=== PATIENT | male | born 1975 | race Caucasian/White ===

== ENCOUNTER 2017-01-27 16:20 | Emergency (ER) | payer OTHER ==
[~2017-01-27] VITALS: Ht 172.7 cm; Wt 59.0 kg
[2017-01-27] MEDS ORDERED: LIDOCAINE 2% 20 ML (XYLOCAINE) VIAL INJ ONE (16:30)
[2017-01-27] MEDS ORDERED: CEPHALEXIN 250 MG (KEFLEX) CAP PO ONE (16:30)
--- NOTE | 2017-01-27 16:32 | ED Upper Extremity ---
General Stated Complaint: RT HAND MIDDLE FINGER INJ Source: patient Exam Limitations: no limitations History of Present Illness Time seen by provider: 16:31 Initial Comments To ER with reports of right middle and pointer finger lacerations after he was at work and a grain auger fell on his hand. Was more of a crush injury as the auger was not running. Tetanus is up-to-date. Onset: just prior to arrival Severity: moderate Pain/Injury Location: right 2nd finger, right 3rd finger Method of Injury: direct blow Allergies and Home Medications Allergies Coded Allergies: No Known Drug Allergies (Unverified , 01/27/17) Home Medications Cephalexin 500 Mg Capsule, 500 MG PO TID, #21 Prescribed by: LAITH FOUNTAIN on 01/27/17 1717 Hydrocodone/Acetaminophen 1 Each Tablet, 1 EACH PO Q6H PRN for PAIN-MODERATE, # 14 Prescribed by: LAITH FOUNTAIN on 01/27/177 Ondansetron 8 Mg Tab.rapdis, 8 MG PO Q6H PRN for NAUSEA/VOMITING-1ST LINE, #10 Prescribed by: LAITH FOUNTAIN on 01/27/177 Constitutional: see HPI EENTM: see HPI Respiratory: no symptoms reported Cardiovascular: no symptoms reported Genitourinary: no symptoms reported Musculoskeletal: see HPI Skin: no symptoms reported Psychiatric/Neurological: No Symptoms Reported Physical Exam Vital Signs Vital Sign - Last 12Hours 01/27/17 16:25 Temp 98.0 Pulse 70 Resp 16 B/P (MAP) 119/73 Pulse Ox 99 Capillary Refill : General Appearance: WD/WN, no apparent distress HEENT: PERRL/EOMI, normal ENT inspection Neck: non-tender, full range of motion Respiratory: no respiratory distress, no accessory muscle use Shoulder: normal inspection, non-tender Elbow/Forearm: normal inspection, non-tender, Right Wrist: Yes normal inspection, Yes non-tender Hand: normal inspection, Right, limited ROM (laceration over the DIP joint right middle finger. He is unable to extend the finger at that joint. After he was anesthetized with a digital block using 4 mL of 2 percent lidocaine without epinephrine, wound was scrubbed with chlorhexidine/saline solution and irrigated with 100 mL of the same. There was evidence of a fracture, laceration of the extensor tendon over the dorsal aspect of the DIP joint. This was closed primarily with use of 5-0 Prolene sutures totaling number 6. Distal most aspect of the finger maintains capillary refill at less than 3 seconds) Neurologic/Tendon: normal sensation, normal motor functions, normal tendon functions Neurologic/Psychiatric: alert, normal mood/affect, oriented x 3 Skin: normal color, warm/dry Progress/Results/Core Measures Results/Orders My Orders Orders - LAITH FOUNTAIN APRN Lidocaine 2% Injection 20 Ml (Xylocaine (01/27/17 16:30) Cephalexin Capsule (Keflex Capsule) (01/27/17 16:30) Hand, Right, 3 Views (01/27/17 16:25) Medications Given in ED Current Medications Medications Dose Ordered Sig/Sujata Route Start Time Stop Time Status Last Admin Dose Admin Cephalexin HCl 500 mg ONCE ONCE PO 01/27/17 16:30 01/27/17 16:31 DC 01/27/17 16:30 500 MG Lidocaine HCl 20 ml ONCE ONCE INJ 01/27/17 16:30 01/27/17 16:31 DC 01/27/17 16:30 20 ML Vital Signs/I&O Vital Sign - Last 12Hours 01/27/17 16:25 Temp 98.0 Pulse 70 Resp 16 B/P (MAP) 119/73 Pulse Ox 99 Diagnostic Imaging Diagonstic Imaging: Xray Comments NAME: NANDA GRUBBS [facility] REC#: [id number] PT STATUS: REG ER : 1975 PHYSICIAN: LAITH FOUNTAIN APRN ADMIT DATE: 01/27/17/ER Draft Date of Exam:01/27/17 HAND, RIGHT, 3 VIEWS EXAMINATION: HAND, RIGHT, 3 VIEWS. INDICATION: Equipment fell on hand. COMPARISON: None. FINDINGS: Moderately displaced intra-articular fracture involving the base of the third distal phalanx. No other fractures. No radiopaque foreign bodies. IMPRESSION: Moderately displaced intra-articular fracture involving the base of the third right distal phalanx. Dictated on workstation # [id number] Dict: 01/27/17 1731 Trans: 01/27/17 1735 [facility] [id number] Interpreted by: MONICA RAY MD Electronically signed by: Departure Impression Impression: Primary Impression: Finger laceration involving tendon Disposition: 01 HOME, SELF-CARE Condition: Stable Departure-Patient Inst. Decision time for Depature: 17:15 Referrals: ED MARTINI MD,[facility],ANGEL MIKE,LOCAL PHYSICIAN (PCP) Primary Care Physician AUDIE DONOVAN MD, ROBERT F DO ZAFUTA,MONO Floyd MD Patient Instructions: Finger Fracture (DC), Laceration Repair With Stitches (DC ), Tendon Laceration (DC) Add. Discharge Instructions: 1. Return to the emergency room to have the stitches removed in 12 days 2. You may wash this allowing water to run over it twice a day with soap and water but do not soak it in water such as a hot tub, bathtub, dish sink until the stitches been removed 3. Return to ER for any redness or swelling or drainage that may suggest infection 4. Take antibiotics and the pain medication as directed 5. Follow-up with orthopedics to evaluate the extensor tendon injury of this finger. I've list of the local orthopedic surgeons for you. Try to be seen within the next 2 weeks. Scripts Cephalexin (Keflex) 500 Mg Capsule 500 MG PO TID, #21 CAP Prov: LAITH FOUNTAIN APRN 01/27/17 Hydrocodone/Acetaminophen ([place] 5-325 Tablet) 1 Each Tablet 1 EACH PO Q6H Y for PAIN-MODERATE, #14 TAB Prov: LAITH FOUNTAIN APRN 01/27/17 Ondansetron (Zofran Odt) 8 Mg Tab.rapdis 8 MG PO Q6H Y for NAUSEA/VOMITING-1ST LINE, #10 TAB Prov: LAITH FOUNTAIN APRN 01/27/17 LAITH FOUNTAIN APRN Jan 27, 2017 16:32
[2017-01-27] MEDS ORDERED: CEPH-507 PO (17:17)
[2017-01-27] MEDS ORDERED: HYDR-757 PO (17:17)
[2017-01-27] MEDS ORDERED: ONDA8TAB9 PO (17:17)
--- NOTE | 2017-01-27 17:36 | Diagnostic Imaging Report ---
EXAMINATION: HAND, RIGHT, 3 VIEWS. INDICATION: Equipment fell on hand. COMPARISON: None. FINDINGS: Moderately displaced intra-articular fracture involving the base of the third distal phalanx. No other fractures. No radiopaque foreign bodies. IMPRESSION: Moderately displaced intra-articular fracture involving the base of the third right distal phalanx. Dictated by: Dictated on workstation # [id number]
[2017-01-27 17:48] VITALS: BP 119/73
== END 2017-01-27 17:48 | disposition home or self-care (01) ==
LOC: EDUNIT# 16:20 → ER 16:23
DX: S61.210A Laceration without foreign body of right index finger without damage to nail, initial encounter (principal); W23.0XXA Caught, crushed, jammed, or pinched between moving objects, initial encounter
CPT/HCPCS: 12041; 29130; 64450; 73130

== ENCOUNTER 2018-10-26 11:38 | Emergency (ER) | payer SELFPAY ==
[~2018-10-26] VITALS: Ht 167.6 cm; Wt 61.2 kg
[~2018-10-26 11:38] MED LIST: CEPH-507 PO; HYDR-4226 PO; ONDA8TAB9 PO
[2018-10-26] MEDS ORDERED: CEPH500T PO (11:53)
[2018-10-26] MEDS ORDERED: SULF1TAB35 PO (11:53)
[2018-10-26] MEDS ORDERED: HYDR-4226 PO (11:53)
[2018-10-26] MEDS ORDERED: PRD20T PO (11:53)
--- NOTE | 2018-10-26 11:53 | ED Integumentary General ---
General Stated Complaint: POSS BUG BITE Source: patient Exam Limitations: no limitations History of Present Illness Date Seen by Provider: October 26, 2018 Time Seen by Provider: 11:47 Initial Comments To ER with reports of a possible bug bite. He was sleeping at a friend's house yesterday when he awakened to a sudden sharp pain in the proximal volar right forearm. Today he has swelling to that area, pain, slight redness. He is otherwise healthy, did not actually see anything bite him. Timing/Duration: just prior to arrival Severity: moderate Location: extremities Possible Cause: insect bite (suspected) Associated Symptoms: rash Allergies and Home Medications Allergies Coded Allergies: No Known Drug Allergies (Unverified , 01/27/17) Home Medications Cephalexin 500 Mg Capsule, 500 MG PO TID Prescribed by: LAITH FOUNTANI on 01/27/171716 Hydrocodone/Acetaminophen 1 Each Tablet, 1 EACH PO Q6H PRN for PAIN-MODERATE Prescribed by: LAITH FOUNTAIN on 01/27/171716 Ondansetron 8 Mg Tab.rapdis, 8 MG PO Q6H PRN for NAUSEA/VOMITING-1ST LINE Prescribed by: LAITH FOUNTAIN on 01/27/171716 Patient Home Medication List Home Medication List Reviewed: Yes Review of Systems Review of Systems Constitutional: see HPI; No chills, No fever EENTM: see HPI Respiratory: no symptoms reported Cardiovascular: no symptoms reported Genitourinary: no symptoms reported Musculoskeletal: see HPI Skin: see HPI Psychiatric/Neurological: No Symptoms Reported Endocrine: No Symptoms Reported Hematologic/Lymphatic: No Symptoms Reported Past Wriieeo-Qhawak-Nhqumy Hx Patient Social History Drug of Choice: METH, MARIJUANA 2nd Hand Smoke Exposure: Yes Recent Foreign Travel: No Contact w/Someone Who Travel: No Past Medical History Surgeries: No Respiratory: No Cardiac: No Neurological: No Genitourinary: No Gastrointestinal: No Musculoskeletal: No Endocrine: No HEENT: No Cancer: No Psychosocial: No Integumentary: No Physical Exam Vital Signs Capillary Refill : General Appearance: WD/WN, no apparent distress HEENT: PERRL/EOMI, normal ENT inspection Neck: non-tender, full range of motion Respiratory: no respiratory distress, no accessory muscle use Neurologic/Psychiatric: alert, normal mood/affect, oriented x 3 Skin: normal color, warm/dry Skin Problem Location: upper extremities Skin Problem Character: other (there is edema and slight erythema without fluctuance to the proximal right volar aspect of the forearm. No lymphangitis, he can flex and extend the wrist and the elbow. There is a central 2 mm eschar without drainage.) Departure Communication (Admissions) Differential would include localized allergic reaction versus cellulitis Impression Primary Impression: Localized swelling of forearm Disposition: HOME, SELF-CARE Condition: Stable Departure-Patient Inst. Decision time for Depature: 11:50 Referrals: NO,LOCAL PHYSICIAN (PCP/Family) Primary Care Physician Patient Instructions: Cellulitis (Skin Infection), Adult (DC), Insect Bites and Stings Add. Discharge Instructions: 1. Cold compresses to the area may help if this begins to itch, 2. Both antibiotics and steroids as directed 3. Follow-up with primary care later this week for recheck. Return to ER for any worsening. You may notice that it takes about 24-48 hours to see improvement Scripts Hydrocodone/Acetaminophen ([place] 5-325 Tablet) 1 Each Tablet 1 TAB PO Q4-6HR for Pain MDD 10 TABS for 7 Days, #10 TAB Do not fill unless Keflex, Bactrim, prednisone are also filled Prov: LAITH FOUNTAIN APRN 10/26/18 Prednisone (Prednisone) 20 Mg Tab 40 MG PO DAILY, #6 TAB 0 Refills Prov: LAITH FOUNTAIN APRN 10/26/18 Sulfamethoxazole/Trimethoprim (Bactrim Ds Tablet) 1 Each Tablet 1 EACH PO BID, #14 TAB Prov: LAITH FOUNTAIN APRN 10/26/18 Cephalexin (Cephalexin) 500 Mg Tablet 500 MG PO QID, #28 TAB 0 Refills Prov: LAITH FOUNTAIN APRN 10/26/18 LAITH FOUNTAIN APRN October 26, 2018 11:53
[2018-10-26] MEDS ORDERED: DEXAMETHASONE 10 MG/ML (DECADRON) 1 ML VIAL IM ONE (12:00)
[2018-10-26] MEDS ORDERED: cefTRIAXone 1,000 MG/2.86 ml vial (IM ONLY) IM SCH (12:00)
[2018-10-26] MEDS ORDERED: LIDOCAINE 1% INJ 20 ML 20 ML VIAL INJ ONE (12:00)
[2018-10-26 12:15] VITALS: BP 128/76
[2018-10-29] MEDS ORDERED: HYDR-3820 PO (12:53)
== END 2018-10-26 12:16 | disposition home or self-care (01) ==
LOC: EDUNIT# 11:38 → ER 11:39
DX: M79.89 Other specified soft tissue disorders (principal); F15.10 Other stimulant abuse, uncomplicated; F12.10 Cannabis abuse, uncomplicated; Z77.22 Contact with and (suspected) exposure to environmental tobacco smoke (acute) (chronic)
CPT/HCPCS: 99284

== ENCOUNTER 2018-10-28 05:15 | Inpatient (IN) | payer SELFPAY ==
[2018-10-28] VITALS (13 sets, daily range): BP systolic 108–131; BP diastolic 51–85
[~2018-10-28] VITALS: Ht 167.6 cm; Wt 69.5 kg
[~2018-10-28 05:15] MED LIST changes: +CEPH500T PO; +PRD20T PO; +SULF1TAB35 PO
--- NOTE | 2018-10-28 05:21 | NUR ---
This RN to waiting room, called pt name x3 times, no one in waiting room.
[2018-10-28] MEDS ORDERED: cefTRIAXone FOR IV USE 1,000 MG in WATER (STERILE) FOR INJECTION 10 ML IV ONE (05:45)
[2018-10-28] MEDS ORDERED: VANCOMYCIN INJECTION 1,000 MG in NS (IVPB) 250 ML IV SCH (05:45)
[2018-10-28 05:55] LABS: BASOPHILS % (AUTO) 0 % (0-10); EOSINOPHILS % (AUTO) 0 % (0-10); HEMATOCRIT 42 % (40-54); HEMOGLOBIN 14.2 G/DL (13.3-17.7); LYMPHOCYTES # (AUTO) 1.6 X 10^3 (1.0-4.0); LYMPHOCYTES % (AUTO) 14 % (12-44); MEAN CORPUSCULAR HEMOGLOBIN 31 PG (25-34); MEAN CORPUSCULAR HGB CONC 34 G/DL (32-36); MEAN CORPUSCULAR VOLUME 92 FL (80-99); MEAN PLATELET VOLUME 7.9 FL (7.4-10.4); MONOCYTES # (AUTO) 0.8 X 10^3 (0.0-1.0); MONOCYTES % (AUTO) 7 % (0-12); NEUTROPHILS # (AUTO) 8.8 X 10^3 (1.8-7.8); NEUTROPHILS % (AUTO) 79 % (42-75); PLATELET COUNT 338 10^3/uL (130-400); RED CELL DISTRIBUTION WIDTH 13.6 % (10.0-14.5); WHITE BLOOD COUNT 11.2 10^3/uL (4.3-11.0)
--- NOTE | 2018-10-28 05:57 | ED General ---
General Chief Complaint: Skin/Wound Problems Stated Complaint: RED SWOLLEN FOREARM Nursing Triage Note: Pt amb to room #5 w/o difficulty. a&ox4. c/o inner rt forearm swelling, redness , and pain. Reports to have been seen in this ed on 10/26/18 for same wound, but has been unable to obtain prescribed antibiotic and pain medications d/t financial issues. Reports to have "dug infected hair follicle out with a knife" before area of concern developed. Surrounding tissue noted to be inflammed, swollen, and warm to touch. Denies recent fever. Nursing Sepsis Screen: No Definite Risk Source of Information: Patient, Old Records Exam Limitations: No Limitations History of Present Illness Date Seen by Provider: October 28, 2018 Time Seen by Provider: 05:30 Initial Comments This 42-year-old man presents to the emergency room with pain, swelling, and erythema of the ventral aspect of the right forearm. He was seen 2 days ago for the same issue with lesser symptoms. He was prescribed Bactrim and Keflex which she did not fill due to finances. Patient does not know the cause of the initial symptoms. There is a small scabbed lesion near the area. He speculates he may have been bitten by a spider. He also wondered if there was a "ingrown hair. He dug at it with a pocket knife. There is been no drainage. He is afebrile. The area of blanching erythema is indurated and tightly swollen. He has pain with flexion and extension of the wrist. He retains sensation in the fingers and has a strong radial pulse. Patient is admittedly a methamphetamine IV drug user. His last use was a couple of days ago. His last marijuana use was a day ago. Allergies and Home Medications Allergies Coded Allergies: No Known Drug Allergies (Unverified , 01/27/17) Home Medications Cephalexin 500 Mg Capsule, 500 MG PO TID Prescribed by: LAITH FOUNTAIN on 01/27/177 Cephalexin 500 Mg Tablet, 500 MG PO QID Prescribed by: LAITH FOUNTAIN on 10/26/18 1153 Hydrocodone/Acetaminophen 1 Each Tablet, 1 EACH PO Q6H PRN for PAIN-MODERATE Prescribed by: LAITH FOUNTAIN on 01/27/17 1717 Hydrocodone/Acetaminophen 1 Each Tablet, 1 TAB PO Q4-6HR Do not fill unless Keflex, Bactrim, prednisone are also filled Prescribed by: LAITH FOUNTAIN on 10/26/18 1153 Ondansetron 8 Mg Tab.rapdis, 8 MG PO Q6H PRN for NAUSEA/VOMITING-1ST LINE Prescribed by: LAITH FOUNTAIN on 01/27/17 1717 Prednisone 20 Mg Tab, 40 MG PO DAILY Prescribed by: LAITH FOUNTAIN on 10/26/18 1153 Sulfamethoxazole/Trimethoprim 1 Each Tablet, 1 EACH PO BID Prescribed by: LAITH FOUNTAIN on 10/26/18 1153 Patient Home Medication List Home Medication List Reviewed: Yes Review of Systems Review of Systems Constitutional: no symptoms reported EENTM: no symptoms reported Respiratory: no symptoms reported Cardiovascular: no symptoms reported Gastrointestinal: no symptoms reported Genitourinary: no symptoms reported Musculoskeletal: see HPI Skin: see HPI Psychiatric/Neurological: See HPI Hematologic/Lymphatic: No Symptoms Reported Immunological/Allergic: no symptoms reported Past Kbukhvz-Gypgta-Kxhivd Hx Past Med/Social Hx: Reviewed and Corrections made Patient Social History Alcohol Use: Occasionally Uses Recreational Drug Use: Yes Drug of Choice: MARIJUINA, IV methamphetamines 2nd Hand Smoke Exposure: Yes Recent Foreign Travel: No Contact w/Someone Who Travel: No Recent Infectious Disease Expo: No Past Medical History Surgeries: No Respiratory: No Cardiac: No Neurological: No Genitourinary: No Gastrointestinal: No Musculoskeletal: No Endocrine: No HEENT: No Cancer: No Psychosocial: No Integumentary: No Physical Exam Vital Signs Vital Signs - First Documented 10/28/18 05:21 Temp 98.0 Pulse 85 Resp 17 B/P (MAP) 119/68 (85) Pulse Ox 99 O2 Delivery Room Air Capillary Refill : Less Than 3 Seconds Height, Weight, BMI Height: 5'6.00" Weight: 135lbs. 0oz. 61.501786xf; BMI Method:Stated General Appearance: No Apparent Distress, WD/WN HEENT: PERRL/EOMI, Normal ENT Inspection Neck: Normal Inspection Respiratory: Lungs Clear, Normal Breath Sounds, No Accessory Muscle Use, No Respiratory Distress Cardiovascular: Regular Rate, Rhythm, No Edema, No Murmur Extremity: Other (blanching erythema, induration, tenderness, and swelling of the ventral aspect of the right forearm. Small dark lesion near this area. Strong radial pulse. Sensation and range of motion intact in the hand and wrist. There is pain in the forearm with range of motion in the wrist.) Neurologic/Psychiatric: Alert, Oriented x3, No Motor/Sensory Deficits, Normal Mood/Affect, cardiothoracic physiotherapist II-XII Norm as Tested Skin: Warm/Dry, Erythema Focused Exam Lactate Level 10/28/18 05:47: Lactic Acid Level 0.76 Lactic Acid Level Laboratory Tests Test 10/28/18 05:47 Lactic Acid Level 0.76 MMOL/L (0.50-2.00) Progress/Results/Core Measures Suspected Sepsis Recent Fever Within 48 Hours: No Infection Criteria Present: Documented Infection New/Unexplained Altered Menta: No Sepsis Screen: No Definite Risk SIRS Temperature:98.0 Pulse: 85 Respiratory Rate: 17 Laboratory Tests 10/28/18 05:47: White Blood Count 11.2H Blood Pressure 119 /68 Mean: 85 10/28/18 05:47: Lactic Acid Level 0.76 Laboratory Tests 10/28/18 05:47: Platelet Count 338 Results/Orders Lab Results Laboratory Tests Test 10/28/18 05:47 Range/Units White Blood Count 11.2 H 4.3-11.0 10^3/uL Red Blood Count 4.56 4.35-5.85 10^6/uL Hemoglobin 14.2 13.3-17.7 G/DL Hematocrit 42 40-54 % Mean Corpuscular Volume 92 80-99 FL Mean Corpuscular Hemoglobin 31 25-34 PG Mean Corpuscular Hemoglobin Concent 34 32-36 G/DL Red Cell Distribution Width 13.6 10.0-14.5 % Platelet Count 338 130-400 10^3/uL Mean Platelet Volume 7.9 7.4-10.4 FL Neutrophils (%) (Auto) 79 H 42-75 % Lymphocytes (%) (Auto) 14 12-44 % Monocytes (%) (Auto) 7 0-12 % Eosinophils (%) (Auto) 0 0-10 % Basophils (%) (Auto) 0 0-10 % Neutrophils # (Auto) 8.8 H 1.8-7.8 X 10^3 Lymphocytes # (Auto) 1.6 1.0-4.0 X 10^3 Monocytes # (Auto) 0.8 0.0-1.0 X 10^3 Eosinophils # (Auto) 0.0 0.0-0.3 10^3/uL Basophils # (Auto) 0.0 0.0-0.1 10^3/uL Lactic Acid Level 0.76 0.50-2.00 MMOL/L My Orders Orders - ANABEL MONTES MD Cbc With Automated Diff (10/28/18 05:38) Comprehensive Metabolic Panel (10/28/18 05:38) Hs C Reactive Protein (10/28/18 05:38) Blood Culture (10/28/18 05:38) Ed Iv/Invasive Line Start (10/28/18 05:38) Lactic Acid Analyzer (10/28/18 05:38) Ceftriaxone For Iv Use (Rocephin For I (10/28/18 05:45) Vancomycin Injection (Vancomycin Injecti (10/28/18 05:45) Medications Given in ED Current Medications Medications Dose Ordered Sig/Sujata Route Start Time Stop Time Status Last Admin Dose Admin Ceftriaxone Sodium 1000 mg/ Sterile Water 10 ml @ 200 mls/hr ONCE ONCE IV 10/28/18 05:45 10/28/18 05:47 DC 10/28/18 05:59 200 MLS/HR Vital Signs/I&O 10/28/18 05:21 Temp 98.0 Pulse 85 Resp 17 B/P (MAP) 119/68 (85) Pulse Ox 99 O2 Delivery Room Air Capillary Refill : Less Than 3 Seconds Blood Pressure Mean: 85 Progress Note : Time: 05:54 Progress Note Patient was seen and examined. Labs have been ordered. Labs include blood culture and lactic acid. Bedside ultrasound revealed layering of fluid in the subcutaneous tissues over the area of maximum swelling. There is concern for abscess Departure Communication (Admissions) Time/Spoke to Admitting Phy: 06:05 Dr. Chi Time/Spoke to Consulting Phy: 06:09 Dr. Correa Impression Primary Impression: Cellulitis and abscess of upper arm and forearm Additional Impression: Polysubstance abuse Disposition: 01 HOME, SELF-CARE Condition: Improved Admissions Decision to Admit Reason: Admit from ER (General) Decision to Admit/Date: October 28, 2018 Time/Decision to Admit Time: 05:40 Departure-Patient Inst. Referrals: NO,LOCAL PHYSICIAN (PCP/Family) Primary Care Physician ANABEL MONTES MD October 28, 2018 05:57
[2018-10-28 06:14] LABS: ALANINE AMINOTRANSFERASE 15 U/L (0-55); ALKALINE PHOSPHATASE 75 U/L (40-136); BILIRUBIN,TOTAL 0.5 MG/DL (0.1-1.0); BUN/CREATININE RATIO 9; CALCIUM 9.7 MG/DL (8.5-10.1); CARBON DIOXIDE 24 MMOL/L (21-32); CHLORIDE 100 MMOL/L (98-107); CREATININE SERUM 1.14 MG/DL (0.60-1.30); GFR ESTIMATED > 60; GLUCOSE 94 MG/DL (70-105); POTASSIUM 3.8 MMOL/L (3.6-5.0); SODIUM 135 MMOL/L (135-145); TOTAL PROTEIN 7.5 GM/DL (6.4-8.2)
[2018-10-28] MEDS ORDERED: CATHETER FLUSH 10 ML SYR IV PRN (07:30)
[2018-10-28] MEDS ORDERED: ONDANSETRON 4 MG/2 ML (SDV) Z0FRAN IV PRN (07:30)
[2018-10-28] MEDS ORDERED: NS IV 1000 ML 1,000 ML IV SCH (07:30)
--- NOTE | 2018-10-28 07:36 | NUR ---
PHARMACY TO DOSE VANCOMYCIN: BASED ON IBW 63.8, SCr 1.14 EST CrCl 78 LOADING DOSE: 1,500 MG MAIN DOSE: 1,000 MG IV Q 12 HR VANCOMYCIN TROUGH DUE 10/29/18 @ 19:00 IF TROUGH GREATER THAN 20 HOLD 10/29/18 20:00 DOSE
[2018-10-28] MEDS ORDERED: VANCOMYCIN 1500 MG/NS 500 ML IVPB IV NR ×2 (08:00)
--- NOTE | 2018-10-28 09:11 | History & Physical-Hospitalist ---
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 Apparently he went to the ER 2 days prior given appropriate antibiotics but could not afford the generic antibiotic that was given so he returned it was much worse. He reports that it started out as an ingrown hair which she dug out with his pocket knife. Overall patient is not forthcoming with any significant details. I appreciate Dr. Correa who will perform incision and drainage maintain antibiotics in the meantime. Source: patient Exam Limitations: no limitations Date Seen 10/28/18 Time Seen by a Provider: 09:00 Attending Physician Gianfranco Correa DO PCP No,Local Physician Referring Physician Date of Admission October 28, 2018 at 06:07 Home Medications & Allergies Home Medications Reviewed patient Home Medication Reconciliation performed by pharmacy medication reconciliations lab animal technician and/or nursing. Patients Allergies have been reviewed. Allergies Allergies Coded Allergies No Known Drug Allergies (Unverified01/27/17) Past Teqzfwt-Qqoxhl-Ekzigd Hx Past Med/Social Hx: Reviewed Nursing Past Med/Soc Hx, Reviewed and Corrections made Patient Social History Marrital Status: single Employed/Student: unemployed Alcohol Use: Occasionally Uses Recreational Drug Use: Yes Drug of Choice: MARIJUINA, IV methamphetamines Smoking Status: Unknown if Ever Smoked 2nd Hand Smoke Exposure: Yes Recent Foreign Travel: No Contact w/other who traveled: No Recent Infectious Disease Expo: No Review of Systems Constitutional: see HPI, fever, malaise, weakness Musculoskeletal: muscle pain Skin: see HPI Physical Exam Physical Exam Vital Signs Vital Signs - First Documented 10/28/18 05:21 Temp 98.0 Pulse 85 Resp 17 B/P (MAP) 119/68 (85) Pulse Ox 99 O2 Delivery Room Air Capillary Refill : Less Than 3 Seconds Height, Weight, BMI Height: 5'6.00" Weight: 153lbs. 4.1oz. 69.393046iz; BMI Method:Stated General Appearance: No Apparent Distress Respiratory: Chest Non Tender, Lungs Clear, Normal Breath Sounds, No Accessory Muscle Use, No Respiratory Distress Cardiovascular: Regular Rate, Rhythm, No Edema, No Gallop, No JVD, No Murmur, Normal Peripheral Pulses Extremity: Normal Capillary Refill, Normal Inspection (except right lower arm with erythema and tenderness), Normal Range of Motion, Non Tender, No Calf Tenderness, No Pedal Edema Results Results/Procedures Labs Laboratory Tests 10/28/18 05:47 Patient resulted labs reviewed. Assessment/Plan Admission Diagnosis Assessment: Right arm cellulitis with abscess from taking a sore out with pocketknife Noncompliant with antibiotics given in ER 2 days prior Long history of methamphetamine use Daily use of marijuana Plan: IV antibiotics Incision and drainage Appreciate general surgery consultation Admission Status: Inpatient Order (span 2 midnights) Reason for Inpatient Admission: Failure of PO antibiotics Diagnosis/Problems Diagnosis/Problems (1) Cellulitis and abscess of upper arm and forearm Status: Acute (2) Polysubstance abuse Status: Acute LANDY PEARCE DO October 28, 2018 09:11
--- NOTE | 2018-10-28 09:42 | Consultation (Surgery) ---
History of Present Illness History of Present Illness Patient Consulted On(derrick/time) 10/28/18 09:36 Time Seen by Provider: 09:29 History of Present Illness Surgery asked to consult regarding right forearm abscess/cellulitis. HPI per ED: This 42-year-old man presents to the emergency room with pain, swelling, and erythema of the ventral aspect of the right forearm. He was seen 2 days ago for the same issue with lesser symptoms. He was prescribed Bactrim and Keflex which she did not fill due to finances. Patient does not know the cause of the initial symptoms. There is a small scabbed lesion near the area. He speculates he may have been bitten by a spider. He also wondered if there was a "ingrown hair. He dug at it with a pocket knife. There is been no drainage. He is afebrile. The area of blanching erythema is indurated and tightly swollen. He has pain with flexion and extension of the wrist. He retains sensation in the fingers and has a strong radial pulse. Patient is admittedly a methamphetamine IV drug user. His last use was a couple of days ago. His last marijuana use was a day ago. When I spoke to pt this am he states he feels a little better, "not as sick as last night". Still has pain rated 5 out of 10. Allergies and Home Medications Allergies Coded Allergies: No Known Drug Allergies (Unverified , 01/27/17) Home Medications Cephalexin 500 Mg Capsule, 500 MG PO TID Prescribed by: LAITH FOUNTAIN on 01/27/171716 Cephalexin 500 Mg Tablet, 500 MG PO QID Prescribed by: LAITH FOUNTAIN on 10/26/18 115 Hydrocodone/Acetaminophen 1 Each Tablet, 1 EACH PO Q6H PRN for PAIN-MODERATE Prescribed by: LAITH FOUNTAIN on 01/27/171716 Hydrocodone/Acetaminophen 1 Each Tablet, 1 TAB PO Q4-6HR Do not fill unless Keflex, Bactrim, prednisone are also filled Prescribed by: LAITH FOUNTAIN on 10/26/18 115 Ondansetron 8 Mg Tab.rapdis, 8 MG PO Q6H PRN for NAUSEA/VOMITING-1ST LINE Prescribed by: LAITH FOUNTAIN on 01/27/17 171 Prednisone 20 Mg Tab, 40 MG PO DAILY Prescribed by: LAITH FOUNTAIN on 10/26/18 1153 Sulfamethoxazole/Trimethoprim 1 Each Tablet, 1 EACH PO BID Prescribed by: LAITH FOUNTAIN on 10/26/18 1153 Patient Home Medication List Home Medication List Reviewed: Yes Past Hlpyrlo-Ypgabl-Dijkvc Hx Patient Social History Alcohol Use: Occasionally Uses Recreational Drug Use: Yes Drug of Choice: MARIJUINA, IV methamphetamines Smoking Status: Unknown if Ever Smoked 2nd Hand Smoke Exposure: Yes Recent Foreign Travel: No Contact w/Someone Who Travel: No Recent Infectious Disease Expo: No Surgeries History of Surgeries: No Respiratory History of Respiratory Disorde: No Cardiovascular History of Cardiac Disorders: No Neurological History of Neurological Disord: No Genitourinary History of Genitourinary Disor: No Gastrointestinal History of Gastrointestinal Di: No Musculoskeletal History of Musculoskeletal Dis: No Endocrine History of Endocrine Disorders: No HEENT History of HEENT Disorders: No Cancer History of Cancer: No Psychosocial History of Psychiatric Problem: No Integumentary History of Skin or Integumenta: No Family Medical History Significant Family History: Cancer (Father at 49 of [place]) Review of Systems-General Constitutional: chills, diaphoresis, weakness EENTM: No blurred vision, No eye pain, No epistaxis, No throat pain, No throat swelling Respiratory: No cough, No dyspnea on exertion, No hemoptysis Cardiovascular: No chest pain, No edema, No palpitations Gastrointestinal: No abdominal pain, No constipation, No nausea, No vomiting Genitourinary: No dysuria, No frequency, No hematuria Musculoskeletal: joint swelling, muscle pain, muscle stiffness, muscle cramps Skin: see HPI Psychiatric/Neurological: Denies Anxiety, Denies Depressed, Denies Seizure Other pt denies any abnormal bleeding or bruising Physical Exam-General Problems Physical Exam Vital Signs Vital Signs - First Documented 10/28/18 05:21 Temp 98.0 Pulse 85 Resp 17 B/P (MAP) 119/68 (85) Pulse Ox 99 O2 Delivery Room Air Capillary Refill : Less Than 3 Seconds General Appearance: WD/WN, mild distress Eyes: Bilateral Eye PERRL, Bilateral Eye EOMI HEENT: pharynx normal; No scleral icterus (R), No scleral icterus (L) Neck: non-tender, full range of motion, supple, normal inspection Respiratory: chest non-tender, lungs clear, normal breath sounds, no respiratory distress Cardiovascular: regular rate, rhythm, no edema, no murmur Gastrointestinal: normal bowel sounds, non tender, soft, no organomegaly, no pulsatile mass Back: no CVA tenderness, no vertebral tenderness Extremities: no pedal edema, no calf tenderness, normal capillary refill, swelling (erythema in right forearm, ??fluctuant wave and very warm to touch, tender) Neurologic/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: 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 as tested, no motor/sensory deficits, alert, normal mood/affect, oriented x 3 Skin: normal color, warm/dry Lymphatic: no adenopathy (neck, axilla or groin) Data Review Labs Laboratory Tests 10/28/18 05:47: White Blood Count 11.2H, Red Blood Count 4.56, Hemoglobin 14.2, Hematocrit 42, Mean Corpuscular Volume 92, Mean Corpuscular Hemoglobin 31, Mean Corpuscular Hemoglobin Concent 34, Red Cell Distribution Width 13.6, Platelet Count 338, Mean Platelet Volume 7.9, Neutrophils (%) (Auto) 79H, Lymphocytes (%) (Auto) 14 , Monocytes (%) (Auto) 7, Eosinophils (%) (Auto) 0, Basophils (%) (Auto) 0, Neutrophils # (Auto) 8.8H, Lymphocytes # (Auto) 1.6, Monocytes # (Auto) 0.8, Eosinophils # (Auto) 0.0, Basophils # (Auto) 0.0, Sodium Level 135, Potassium Level 3.8, Chloride Level 100, Carbon Dioxide Level 24, Anion Gap 11, Blood Urea Nitrogen 10, Creatinine 1.14, Estimat Glomerular Filtration Rate > 60, BUN/ Creatinine Ratio 9, Glucose Level 94, Lactic Acid Level 0.76, Calcium Level 9.7 , Corrected Calcium 9.7, Total Bilirubin 0.5, Aspartate Amino Transf (AST/SGOT) 15, Alanine Aminotransferase (ALT/SGPT) 15, Alkaline Phosphatase 75, C-Reactive Protein High Sensitivity 9.70H, Total Protein 7.5, Albumin 4.0 Assessment/Plan Assessment/Plan Assessment/Plan Right Forearm Abscess and Cellulitis Pt has abscess and fluid confirmed by US in his right forearm; it actually looks better than lines drawn on arm last night, but is now all collecting in the center. I explained to pt that unless the purulent fluid is removed the ABX won't work. Plan is I&D with possible debridement, possible packing. Will leave incision open and then start on oral ABX. If he is doing well enough he may even be able to go home today. All questions answered to his satisfaction. We did discuss risks and complications not limited to pain, bleeding, infection and scar. ESME GOMEZ DO October 28, 2018 09:42
--- NOTE | 2018-10-28 10:02 | NUR ---
PATIENT STATES HE IS NOT CURRENTLY TAKING ANY MEDICATIONS. HE WAS PRESCRIBED KEFLEX, NORCO, BACTRIM, AND PREDNISONE FROM THE EMERGENCY DEPARTMENT RECENTLY HOWEVER THOSE SCRIPTS ARE STILL READY AT [facility]. HE STATES HE WAS UNABLE TO AFFORD TO PICK THEM UP. I REMOVED THEM FROM THE MED REC AT THIS TIME.
[2018-10-28] MEDS ORDERED: BUP/EPI 0.5% 1:200,000 (SENSORCAINE) 30 ML VIAL ONE (10:24)
[2018-10-28] MEDS ORDERED: LIDOCAINE 1% INJ 20 ML 20 ML VIAL ONE (10:24)
--- NOTE | 2018-10-28 10:30 | NUR ---
STENCILING MACHINE TENDER HERE TO TAKE PATIENT FOR PROCEDURE. PATIENT STABLE ON ROOM AIR, IN GOWN AND CONSENT IN IS THE CHART. PATIENT TRANSPORTED VIA HOSPITAL BED.
[2018-10-28] MEDS ORDERED: fentaNYL INJECTION 100 MCG/2 ML AMP ONE ×2 (10:40→11:16)
[2018-10-28] MEDS ORDERED: MIDAZOLAM 2 MG/2 ML (VERSED) VIAL ONE (10:40)
[2018-10-28] MEDS: LACTATED RINGERS 1,000 ML IV SCH ×4 (10:44→23:31)
[2018-10-28] MEDS ORDERED: ONDANSETRON 4 MG/2 ML (SDV) Z0FRAN ONE (11:16)
[2018-10-28] MEDS ORDERED: SEVOFLURANE (ULTANE) 15 ML INHAL SOLN ONE (11:16)
[2018-10-28] MEDS ORDERED: proPOfol 200 MG/20 ML (DIPRIVAN) VIAL IV ONE (11:16)
--- NOTE | 2018-10-28 11:26 | Progress Note-Post Operative ---
Post-Operative Progess Note Surgeon (s)/Organic Gardening Teacher (s) Surgeon ESME GOMEZ DO Organic Gardening Teacher: none Pre-Operative Diagnosis Right Forearm Abscess/Cellulitis Post-Operative Diagnosis same Procedure & Operative Findings Date of Procedure 10/28/18 Procedure Performed/Findings I&D with packing Anesthesia Type GET Estimated Blood Loss Estimated blood loss (mL): scant Specimens/Packing Specimens Removed fluid clx ESME GOMEZ DO October 28, 2018 11:26
--- NOTE | 2018-10-28 11:29 | Diagnostic Imaging Report ---
EXAMINATION: Ultrasound of the soft tissues. INDICATION: Cellulitis of the right upper extremity. COMPARISON: There are no prior studies available for comparison. FINDINGS: Reportedly, there is cellulitis of the antecubital fossa and the mid forearm. The ultrasound examination of this area shows that there is generalized edema of the soft tissues and skin in this region. There also appears to be a small collection of fluid along the medial aspect of the forearm. This does not have the appearance of a drainable abscess, however. IMPRESSION: 1. There is generalized soft tissue edema of the antecubital fossa and forearm without evidence for a drainable abscess. 2. If the patient's condition worsens, then a repeat ultrasound exam should be considered. Dictated by: Dictated on workstation # [id number]
[2018-10-28] MEDS ORDERED: HYDROmorphone 2 MG/ML VIAL (DILAUDID) IV ONE (11:45)
[2018-10-28] MEDS ORDERED: morphine INJ 10 MG/ML 1ML (SYR OR VIAL) IVP ONE (11:45)
[2018-10-28] MEDS ORDERED: ONDANSETRON 4 MG/2 ML (SDV) Z0FRAN IVP PRN (11:45)
[2018-10-28] MEDS ORDERED: HYDROmorphone 2 MG/ML VIAL (DILAUDID) ONE (11:53)
[2018-10-28] MEDS ORDERED: morphine INJ 10 MG/ML 1ML (SYR OR VIAL) ONE (11:53)
--- NOTE | 2018-10-28 13:00 | NUR ---
PATIENT BACK IN ROOM FROM OR. PATIENT STABLE ON ROOM AIR. COMPLAINING OF PAIN IN THE RIGHT ARM 03/25.
[2018-10-28] MEDS: fentaNYL INJECTION 100 MCG/2 ML AMP IV PRN ×5 (13:06→23:22)
--- NOTE | 2018-10-28 15:09 | OPERATIVE REPORT ---
DATE OF SERVICE: 10/28/2018 PREOPERATIVE DIAGNOSIS: Right forearm abscess cellulitis. POSTOPERATIVE DIAGNOSIS: Right forearm abscess cellulitis pending cultures. PROCEDURE: Incision and drainage with some minimal debridement and then packing of the right arm. BLOOD LOSS: Scant. FLUIDS: Per anesthesia. POSTOPERATIVE CONDITION: Stable. INDICATION FOR PROCEDURE: The patient is a 42-year-old male who had an abscess cellulitis in the right forearm. started with either an ingrown hair or a spider bite, which he then dug out with a knife, got infected and has been getting progressively worse. FINDINGS: The patient had a large area of induration and some purulence right forearm, opened this up and actually had an orthopedic surgeon come and just take a quick peek and it looked fine. PROCEDURE NOTE: After informed consent was obtained, the patient was brought to the operating room, placed on the table in supine position, sterilely prepped and draped in normal fashion. Made an incision in the right forearm measuring approximately 7.8 cm, carried down through the skin into subcutaneous tissue. Immediately upon entry, then used some blunt dissection. Got out some purulent fluid. Tried to culture this. Sent to pathology and then carefully with blunt dissection, dissected above the muscle. The dissection went out medially on the forearm about 3 cm as well as another 2 cm laterally. The muscle was bulging out, so I asked orthopedic surgeon to come and look. I opened the fascia at his direction underneath. He did not believe this is a compartment syndrome or would become one, so at this point, I irrigated little bit with normal saline. Hemostasis obtained using Bovie electrocautery and then packed the incision with iodoform packing, a quarter-inch packing, packed it up into the tunneled areas and then in the middle of the incision and I then placed 4 x 4s and then a Kerlix dressing. The patient tolerated procedure, still in the operating room while I am dictating this. He is doing well. Sponge, instrument and needle counts were correct at the end of the case. Job ID: [id number] DocumentID: [id number] Dictated Date: 10/28/2018 11:22:08 Enrobing Machine Operator Date: 10/28/2018 15:08:43 Dictated By: ESME GOMEZ DO
[2018-10-28] MEDS: VANCOMYCIN 1 GM/NS 250 ML IVPB IV SCH ×2 (20:49)
[2018-10-29 00:05] VITALS: BP 126/70
--- NOTE | 2018-10-29 01:10 | NUR ---
SPOKE WITH DR. CASTREJON AND INFORMED HIM THAT PT IS COMPLAINING OF SEVERE PAIN IN HIS ARM WITH NUMBNESS AND TINGLING AND STATING THAT HE CANNOT FEEL HIS FINGERS. ON ASSESSMENT PT IS ABLE TO MOVE HIS FINGERS BUT COMPLAINS OF EXTREME PAIN WITH MOVEMENT. TELEPHONE ORDERS RECEIVED FOR 2MG MORPHINE Q2HRS PRN FOR SEVERE PAIN, VICODIN 5MG Q4HRS PRN MODERATE PAIN AND TO DISCONTINUE FENTANYL. WILL CARRY OUT ORDERS AND CONTINUE TO MONITOR PT.
[2018-10-29] MEDS ORDERED: morphine INJ 4 MG/ML 1 ML (VIAL/SYRINGE) ONE (01:25)
[2018-10-29] MEDS ORDERED: morphine INJ 4 MG/ML 1 ML (VIAL/SYRINGE) IVP PRN (01:30)
--- NOTE | 2018-10-29 01:45 | NUR ---
THIS RN AND A SECOND RN WENT IN AND TOOK PTS DRESSING OFF TO ASSESS WOUND. WOUND IS RED AND VERY HARD TO THE TOUCH. WITH SMALL AMT OF REDNESS COMING OUT PAST WHERE PREVIOUS DRAWING WAS DRAWN ON PTS ARM. CALLED DR. CASTREJON AND INFORMED HIM OF THESE FINDINGS. NO NEW ORDERS AT THIS TIME.
[2018-10-29 03:59] VITALS: BP 116/63
[2018-10-29] MEDS: HYDROcodone/APAP 5 MG/325 MG (LORTAB) TAB PO PRN ×2 (06:50→14:20)
--- NOTE | 2018-10-29 07:08 | Anesthesia-General Post-Op ---
General Patient Condition Mental Status/LOC: Same as Preop Cardiovascular: Satisfactory Nausea/Vomiting: Absent Respiratory: Satisfactory Pain: Controlled Complications: Absent Post Op Complications Complications None Follow Up Care/Instructions Patient Instructions None needed. Anesthesia/Patient Condition Patient Condition Patient is doing well, no complaints, stable vital signs, no apparent adverse anesthesia problems. No complications reported per nursing. D/C home per [facility] Criteria: Yes SHAVON METZ CRNA October 29, 2018 07:08
[2018-10-29 08:00] VITALS: BP 131/66
[2018-10-29] MEDS: VANCOMYCIN 1 GM/NS 250 ML IVPB IV SCH ×2 (08:18)
[2018-10-29] MEDS ORDERED: cefTRIAXone 1,000 MG/SWFI 10 ML IV PUSH IV SCH ×2 (09:00)
[2018-10-29] MEDS ORDERED: SULF1TAB35 PO (09:49)
--- NOTE | 2018-10-29 09:50 | Discharge Summary-Hospitalist ---
Diagnosis/Chief Complaint Date of Admission October 28, 2018 at 06:07 Date of Discharge Discharge Date: October 29, 2018 Admission Diagnosis Assessment: Right arm cellulitis with abscess from taking a sore out with pocketknife Noncompliant with antibiotics given in ER 2 days prior Long history of methamphetamine use Daily use of marijuana Plan: IV antibiotics Incision and drainage Appreciate general surgery consultation Discharge Diagnosis (1) Cellulitis and abscess of upper arm and forearm Status: Acute (2) Polysubstance abuse Status: Acute Discharge Summary Discharge Physical Exam Allergies: Coded Allergies: No Known Drug Allergies (Unverified , 01/27/17) Vitals & I&Os Vital Signs Date Time Temp Pulse Resp B/P (MAP) Pulse Ox O2 Delivery O2 Flow Rate FiO2 10/29/18 14:45 99 18 131/66 97 Room Air 10/29/18 14:45 98.6 10/28/18 12:10 1 General Appearance: No Apparent Distress, WD/WN, Chronically ill Skin: Other (improved erythema left arm) Neurologic/Psychiatric: Alert, Oriented x3, No Motor/Sensory Deficits, Normal Mood/Affect Hospital Course Was the Problem List Reviewed?: Yes Patient was admitted after failing to fill Rx of Bactrim. Patient was placed on IV abx and underwent an I&D by Dr Correa. Packing was placed. Patient was deemed stable for DC and close f/u with Dr Correa and meth use cessation was counseled. Poor f/u and compliance was expected. Labs (last 24 hrs) Microbiology 10/28/18 Blood Culture - Preliminary, Resulted No growth 10/28/18 MRSA Screen - Final, Complete MRSA not isolated 10/28/18 Gram Stain - Final, Resulted 10/28/18 Anaerobic Culture, Resulted Pending 10/28/18 Surgical Culture - Preliminary, Resulted Streptococcus intermedius 10/28/18 Fungal Culture 1, Resulted Pending Patient resulted labs reviewed. Discussion & Recommendations Discharge Planning: <30 minutes discharge planning Discharge Home Medications: Active Scripts Active Hydrocodon-Acetaminophn 10-325 (Hydrocodone/Acetaminophen) 1 Each Tablet 1 Tab PO Q6H MDD 5 Bactrim Ds Tablet (Sulfamethoxazole/Trimethoprim) 1 Each Tablet 1 Each PO BID Instructions to patient/family Please see electronic discharge instructions given to patient. Clinical Quality Measures DVT/VTE Risk/Contraindication: Risk Factor Score Per Nursin RFS Level Per Nursing on Admit: 2=Moderate PEARCE,LANDY DO October 29, 2018 09:50
--- NOTE | 2018-10-29 10:43 | NUR ---
CM/SS responded to the SS consult and discussed discharge planning with the patient. He stated that he has been in A/D treatment in [place], but none after that. He was provided with information on [facility]. He was not willing to schedule an intake at this time but was thankful for the information.
--- NOTE | 2018-10-29 10:58 | NUR ---
NOTE AT 1014 THIS RN LEFT MESSAGE FOR DR GOMEZ ABOUT PT'S BEING DISCHARGED TODAY HE MESSAGED BACK THAT HE WANTED TO SEE PT BEFORE DC HOME --
--- NOTE | 2018-10-29 12:32 | Progress Note ---
Subjective Time Seen by a Provider: 12:18 Subjective/Events-last exam Pt seen and examined, sitting comfortably in chair....does not appear to be in pain. States he has bad pain, avoids eye contact Review of Systems General: No Chills Pulmonary: No Dyspnea, No Cough Cardiovascular: No: Chest Pain, Palpitations Focused Exam Lactate Level 10/28/18 05:47: Lactic Acid Level 0.76 Objective Exam Vital Signs Date Time Temp Pulse Resp B/P (MAP) Pulse Ox O2 Delivery O2 Flow Rate FiO2 10/29/18 08:00 Room Air 10/29/18 08:00 98.6 99 18 131/66 (87) 97 Room Air 10/29/18 03:59 99.8 90 20 116/63 (80) 95 Room Air 10/29/18 00:05 99.6 82 18 126/70 (88) 97 Room Air 10/28/18 20:00 Room Air 10/28/18 19:30 98.8 87 20 117/63 (81) 98 Room Air 10/28/18 15:49 98.3 73 18 115/64 (81) 98 Room Air 10/28/18 13:00 97.9 76 18 125/74 (91) 99 Room Air I & O 10/29/18 07:00 Intake Total 3440 ml Balance 3440 ml Capillary Refill : Less Than 3 SecondsLess Than 3 Seconds General Appearance: No Apparent Distress HEENT: PERRL/EOMI Respiratory: Chest Non Tender, Lungs Clear, Normal Breath Sounds, No Accessory Muscle Use, No Respiratory Distress Cardiovascular: Regular Rate, Rhythm, No Murmur, Normal Peripheral Pulses Extremity: Normal Capillary Refill, Normal Inspection (except right lower arm with kerlix wrapped around incision, no erythema visible), Normal Range of Motion, Non Tender, No Calf Tenderness, No Pedal Edema Neurologic/Psychiatric: Alert, Oriented x3 Results Lab Microbiology 10/28/18 Blood Culture - Preliminary, Resulted No growth 10/28/18 Gram Stain - Final, Resulted 10/28/18 Anaerobic Culture, Resulted Pending 10/28/18 Surgical Culture, Resulted Pending 10/28/18 Fungal Culture 1, Resulted Pending Assessment/Plan Assessment/Plan Assessment/Plan S/P I&D of Right Forearm Abscess and Cellulitis Pt ok to go home with pain meds, should come in to my office to have them change packing. F/U in one week. Clinical Quality Measures DVT/VTE Risk/Contraindication: Risk Factor Score Per Nursin RFS Level Per Nursing on Admit: 2=Moderate ESME GOMEZ DO October 29, 2018 12:32
[2018-10-29] MEDS ORDERED: HYDR-3820 PO (12:53)
--- NOTE | 2018-10-29 13:37 | NUR ---
GOT DISCHARGE ORDERS AND NOW PT VOICES HE NEEDS A GAS VOUCHER IF POSSIBLE AND THAT HE CAN NOT AFFORD TO PAY FOR THE RXS- HYDROCODONE AND BACTRIM S.W WAS ADVISED AND SHE IS OWRKING ON IT
--- NOTE | 2018-10-29 14:11 | NUR ---
DISCHARGE PLANNING: This RN is assisting SS in discharge planning for this patient. He is Homeless and lives in his truck. He has no source of income and is in need of continued PO Abx and pain medications. I have been asked to assist the patient with a gas card and PALs voucher. We will assist him with obtaining Bactrim DS for a week no refills utilizing the PALs program but his Hydrocodone will need to get assistance elsewhere. He was given a $10 [employer] gift card for assistance with gas so that he can get to Dr. Correa's office for tomorrow.
--- NOTE | 2018-10-29 14:27 | NUR ---
NOTE THAT DSG WAS [id number] AND GAUZE DSG WERE REMOVED -- PACKING WAS LEFT -- COVERED PACKED AREA WITH 4X4S AND ABD PAD APPLIED AND GAUZE DSG APPLIED AND PAPERED TAPED
--- NOTE | 2018-10-29 14:31 | NUR ---
PT VOICED THAT HE WAS EATING BEFORE HE LEFT --
[2018-10-29 14:45] VITALS: BP 131/66
[2018-10-29] MEDS ORDERED: TROUGH ORDER-PHARMACY XX NR (19:00)
== END 2018-10-29 14:45 | disposition home or self-care (01) | DRG 581 ==
LOC: EDUNIT# 05:15 → ER 05:17 → 4TH 06:07
PROVIDERS: ADMIT Internal Medicine; ATTEND Surgery
PROC: 0J9D0ZZ Drainage of Right Upper Arm Subcutaneous Tissue and Fascia, Open Approach (ICD-10-PCS; principal; 2018-10-28 10:44)
DX: L02.413 Cutaneous abscess of right upper limb (principal); L03.113 Cellulitis of right upper limb; Z59.0 Homelessness; Z91.14 Patient's other noncompliance with medication regimen; F15.10 Other stimulant abuse, uncomplicated; F12.10 Cannabis abuse, uncomplicated
CPT/HCPCS: 36415; 76999; 80053; 83605; 85025; 86141; 87040; 87070; 87075; 87077; 87081; 87101; 87181; 87184; 87205; 96365

== ENCOUNTER 2021-06-23 13:06 | Emergency (ER) | payer MEDICAID ==
[~2021-06-23] VITALS: Ht 167.7 cm; Wt 83.2 kg
[~2021-06-23 13:06] MED LIST changes: +ACHYD1T PO; -SULF1TAB35 PO; +SULF1TAB38 PO
--- NOTE | 2021-06-23 13:18 | ED General ---
General Stated Complaint: COVID POSITIVE,O2 LEVEL 87,COUGH,FEVER Source of Information: Patient Exam Limitations: No Limitations History of Present Illness Date Seen by Provider: Jun 23, 2021 Time Seen by Provider: 13:17 Initial Comments Patient tested positive for Covid on 06/16/2021. He got tested because of fevers but is not sure when the fevers started. He presents today with ongoing fevers, feeling poorly overall. Has a cough headache and nausea. He is unvaccinated. Reports that his oxygen saturation was 87% on room air at home. Timing/Duration: 1 Week Severity: Moderate Associated Systoms: Cough, Fever/Chills, Headaches, Nausea/Vomiting Allergies and Home Medications Allergies Coded Allergies: No Known Drug Allergies (Unverified , 01/27/17) Patient Home Medication List Home Medication List Reviewed: Yes Hydrocodone Bit/Acetaminophen (HYDROcodone/APAP 10/325 TABLET) 1 Each Tablet, 1 TAB PO Q6H Prescribed by: ESME GOMEZ on 10/29/18 1253 Sulfamethoxazole/Trimethoprim (Bactrim Ds Tablet) 1 Each Tablet, 1 EACH PO BID Prescribed by: LANDY PEARCE on 10/29/18 0949 Review of Systems Review of Systems Constitutional: see HPI, weakness EENTM: see HPI Respiratory: see HPI, cough Cardiovascular: no symptoms reported Genitourinary: no symptoms reported Musculoskeletal: no symptoms reported Skin: no symptoms reported Psychiatric/Neurological: No Symptoms Reported Hematologic/Lymphatic: No Symptoms Reported Past Jfrhajw-Snwlvl-Oyqvel Hx Past Medical History Surgeries: No Respiratory: No Cardiac: No Neurological: No Genitourinary: No Gastrointestinal: No Musculoskeletal: No Endocrine: No HEENT: No Cancer: No Psychosocial: No Integumentary: No Family Medical History Alcoholism G8 BROTHER paternal grandfather Colon cancer 19 FATHER Diabetes mellitus Hypertension 19 MOTHER Cancer Physical Exam Vital Signs Vital Signs - First Documented 06/23/21 13:11 Temp 35.5 Pulse 90 Resp 20 B/P (MAP) 119/79 (92) Pulse Ox 93 O2 Delivery Room Air Capillary Refill : Height, Weight, BMI Height: 5'6.00" Weight: 153lbs. 4.1oz. [id number]; BMI Method:Stated General Appearance: No Apparent Distress, WD/WN, Other (Alert and oriented no distress. Oxygen saturation 94% after walking to room 9. This is on room air. Lungs are clear. No accessory muscle use.) Eyes: Bilateral Eye Normal Inspection, Bilateral Eye PERRL, Bilateral Eye EOMI Neck: Full Range of Motion, Normal Inspection Respiratory: No Accessory Muscle Use, No Respiratory Distress Cardiovascular: Regular Rate, Rhythm, Normal Peripheral Pulses Gastrointestinal: Normal Bowel Sounds, Non Tender, Soft Extremity: Normal Capillary Refill, Normal Inspection Neurologic/Psychiatric: Alert, Oriented x3 Skin: Normal Color, Warm/Dry Progress/Results/Core Measures Suspected Sepsis SIRS Temperature: Pulse: Respiratory Rate: Laboratory Tests 06/23/21 13:20: White Blood Count 3.1L Blood Pressure / Mean: Laboratory Tests 06/23/21 13:20: Creatinine 1.38H, Platelet Count 143, Total Bilirubin 0.5 Results/Orders Lab Results Laboratory Tests Test 06/23/21 13:20 06/23/21 13:50 Range/Units White Blood Count 3.1 L 4.3-11.0 10^3/uL Red Blood Count 5.05 4.30-5.52 10^6/uL Hemoglobin 16.0 13.3-17.7 g/dL Hematocrit 46 40-54 % Mean Corpuscular Volume 91 80-99 fL Mean Corpuscular Hemoglobin 32 25-34 pg Mean Corpuscular Hemoglobin Concent 35 32-36 g/dL Red Cell Distribution Width 12.4 10.0-14.5 % Platelet Count 143 130-400 10^3/uL Mean Platelet Volume 9.0 9.0-12.2 fL Immature Granulocyte % (Auto) 0 % Neutrophils (%) (Auto) 50 42-75 % Lymphocytes (%) (Auto) 47 H 12-44 % Monocytes (%) (Auto) 3 0-12 % Eosinophils (%) (Auto) 0 0-10 % Basophils (%) (Auto) 0 0-10 % Neutrophils # (Auto) 1.5 L 1.8-7.8 10^3/uL Lymphocytes # (Auto) 1.5 1.0-4.0 10^3/uL Monocytes # (Auto) 0.1 0.0-1.0 10^3/uL Eosinophils # (Auto) 0.0 0.0-0.3 10^3/uL Basophils # (Auto) 0.0 0.0-0.1 10^3/uL Immature Granulocyte # (Auto) 0.0 0.0-0.1 10^3/uL D-Dimer 0.74 H 0.00-0.49 UG/ML Sodium Level 134 L 135-145 MMOL/L Potassium Level 3.0 L 3.6-5.0 MMOL/L Chloride Level 100 98-107 MMOL/L Carbon Dioxide Level 21 21-32 MMOL/L Anion Gap 13 5-14 MMOL/L Blood Urea Nitrogen 7 7-18 MG/DL Creatinine 1.38 H 0.60-1.30 MG/DL Estimat Glomerular Filtration Rate 56 BUN/Creatinine Ratio 5 Glucose Level 142 H 70-105 MG/DL Calcium Level 8.2 L 8.5-10.1 MG/DL Corrected Calcium 8.4 L 8.5-10.1 MG/DL Total Bilirubin 0.5 0.1-1.0 MG/DL Aspartate Amino Transf (AST/SGOT) 133 H 5-34 U/L Alanine Aminotransferase (ALT/SGPT) 115 H 0-55 U/L Alkaline Phosphatase 65 40-136 U/L C-Reactive Protein High Sensitivity 5.00 H 0.00-0.50 MG/DL Total Protein 7.0 6.4-8.2 GM/DL Albumin 3.8 3.2-4.5 GM/DL Procalcitonin 0.30 H <0.10 NG/ML Urine Color YELLOW Urine Clarity CLEAR Urine pH 5.5 5-9 Urine Specific [place] 1.025 H 1.016-1.022 Urine Protein TRACE H NEGATIVE Urine Glucose (UA) NEGATIVE NEGATIVE Urine Ketones TRACE H NEGATIVE Urine Nitrite NEGATIVE NEGATIVE Urine Bilirubin NEGATIVE NEGATIVE Urine Urobilinogen 0.2 < = 1.0 MG/DL Urine Leukocyte Esterase NEGATIVE NEGATIVE Urine RBC (Auto) NEGATIVE NEGATIVE Urine RBC NONE /HPF Urine WBC 5-10 H /HPF Urine Squamous Epithelial Cells NONE /HPF Urine Crystals NONE /LPF Urine Bacteria NEGATIVE /HPF Urine Casts NONE /LPF Urine Mucus NEGATIVE /LPF Urine Culture Indicated NO Urine Opiates Screen NEGATIVE NEGATIVE Urine Oxycodone Screen NEGATIVE NEGATIVE Urine Methadone Screen NEGATIVE NEGATIVE Urine Propoxyphene Screen NEGATIVE NEGATIVE Urine Barbiturates Screen NEGATIVE NEGATIVE Ur Tricyclic Antidepressants Screen NEGATIVE NEGATIVE Urine Phencyclidine Screen NEGATIVE NEGATIVE Urine Amphetamines Screen NEGATIVE NEGATIVE Urine Methamphetamines Screen NEGATIVE NEGATIVE Urine Benzodiazepines Screen NEGATIVE NEGATIVE Urine Cocaine Screen NEGATIVE NEGATIVE Urine Cannabinoids Screen NEGATIVE NEGATIVE My Orders Orders - LAITH FOUNTAIN APRN Hs C Reactive Protein (06/23/21 13:20) Fibrin Degradation Products (06/23/21 13:20) Cbc With Automated Diff (06/23/21 13:20) Comprehensive Metabolic Panel (06/23/21 13:20) Ua Culture If Indicated (06/23/21 13:20) Ed Iv/Invasive Line Start (06/23/21 13:20) Procalcitonin (Pct) (06/23/21 13:20) Chest 1 View, Ap/Pa Only (06/23/21 13:20) Promethazine Injection (Phenergan Injec (06/23/21 13:30) Lactated Ringers (Lr 1000 Ml Iv Solution (06/23/21 13:30) Acetaminophen Tablet (Tylenol Tablet) (06/23/21 13:30) Ibuprofen Tablet (Motrin Tablet) (06/23/21 13:30) Ct Angio Chest W (06/23/21 13:50) Drug Screen Stat (Urine) (06/23/21 13:51) Iohexol Injection (Omnipaque 350 Mg/Ml 1 (06/23/21 14:15) Received Contrast (Hold Metformin- Contr (06/23/21 14:15) Ns (Ivpb) (Sodium Chloride 0.9% Ivpb Bag (06/23/21 14:15) Medications Given in ED Current Medications Medications Dose Ordered Sig/Sujata Route Start Time Stop Time Status Last Admin Dose Admin Acetaminophen 1,000 mg ONCE ONCE PO 06/23/21 13:30 06/23/21 13:31 DC 06/23/21 13:40 1,000 MG Ibuprofen 800 mg ONCE ONCE PO 06/23/21 13:30 06/23/21 13:31 DC 06/23/21 13:40 800 MG Iohexol 100 ml ONCE ONCE IV 06/23/21 14:15 06/23/21 14:16 DC 06/23/21 14:34 80 ML Promethazine HCl 12.5 mg ONCE ONCE IVP 06/23/21 13:30 06/23/21 13:31 DC 06/23/21 13:41 12.5 MG Sodium Chloride 100 ml ONCE ONCE IV 06/23/21 14:15 06/23/21 14:16 DC 06/23/21 14:34 80 ML Vital Signs/I&O 06/23/21 13:11 Temp 35.5 Pulse 90 Resp 20 B/P (MAP) 119/79 (92) Pulse Ox 93 O2 Delivery Room Air Capillary Refill : Departure Communication (Admissions) 1412-while he was sleeping his oxygen did drop down to we were 91% on room air. However we got him up and walked him in the room and then down to the ambulance bay and back from room 9. We were unable to reproduce any hypoxia as he never fell below 95% even with ambulation. We will discharged home without oxygen. Impression Primary Impression: COVID-19 Disposition: 01 HOME, SELF-CARE Condition: Stable Departure-Patient Inst. Decision time for Depature: 14:13 Referrals: NO,LOCAL PHYSICIAN (PCP/Family) Primary Care Physician Patient Instructions: COVID-19 ED Add. Discharge Instructions: 1. Return to ER for any concerns. Follow-up with your doctor next week. Scripts Promethazine HCl (Promethazine Tablet) 25 Mg Tablet 25 MG PO Q8H PRN for NAUSEA/VOMITING, #14 TAB 0 Refills Prov: LAITH FOUNTAIN APRN 06/23/21 LAITH FOUNTAIN APRN Jun 23, 2021 13:18
[2021-06-23 13:26] LABS: BASOPHILS % (AUTO) 0 % (0-10); EOSINOPHILS % (AUTO) 0 % (0-10); HEMATOCRIT 46 % (40-54); LYMPHOCYTES # (AUTO) 1.5 10^3/uL (1.0-4.0); LYMPHOCYTES % (AUTO) 47 % (12-44); MEAN CORPUSCULAR HEMOGLOBIN 32 pg (25-34); MEAN CORPUSCULAR HGB CONC 35 g/dL (32-36); MEAN CORPUSCULAR VOLUME 91 fL (80-99); MONOCYTES # (AUTO) 0.1 10^3/uL (0.0-1.0); MONOCYTES % (AUTO) 3 % (0-12); NEUTROPHILS # (AUTO) 1.5 10^3/uL (1.8-7.8); NEUTROPHILS % (AUTO) 50 % (42-75); PLATELET COUNT 143 10^3/uL (130-400); WHITE BLOOD COUNT 3.1 10^3/uL (4.3-11.0)
[2021-06-23] MEDS ORDERED: LACTATED RINGERS 1,000 ML IV SCH (13:30)
[2021-06-23] MEDS ORDERED: ACETAMINOPHEN 500 MG TAB (TYLENOL) PO ONE (13:30)
[2021-06-23] MEDS ORDERED: PROMETHAZINE INJ 25 MG/ML (PHENERGAN) AMP IVP ONE (13:30)
[2021-06-23] MEDS ORDERED: IBUPROFEN 800 MG (MOTRIN) TAB PO ONE (13:30)
[2021-06-23 13:36] LABS: ALBUMIN 3.8 GM/DL (3.2-4.5)
[2021-06-23 13:38] LABS: CALCIUM 8.2 MG/DL (8.5-10.1)
[2021-06-23 13:41] LABS: BILIRUBIN,TOTAL 0.5 MG/DL (0.1-1.0)
[2021-06-23 13:42] LABS: CREATININE SERUM 1.38 MG/DL (0.60-1.30)
[2021-06-23 13:58] LABS: BILIRUBIN,URINE NEGATIVE (NEGATIVE); CLARITY,URINE CLEAR; COLOR,URINE YELLOW; GLUCOSE, URINE (UA) NEGATIVE (NEGATIVE); KETONES,URINE TRACE (NEGATIVE); LEUKOCYTE ESTERASE ,URINE NEGATIVE (NEGATIVE); NITRITE,URINE NEGATIVE (NEGATIVE); PH,URINE 5.5 (5-9); PROTEIN,URINE TRACE (NEGATIVE)
[2021-06-23 14:06] LABS: BACTERIA,URINE NEGATIVE /HPF
[2021-06-23 14:09] LABS: AMPHETAMINE SCREEN, URINE NEGATIVE (NEGATIVE); BARBITURATE SCREEN URINE NEGATIVE (NEGATIVE); BENZODIAZEPINES SCREEN URINE NEGATIVE (NEGATIVE); CANNABINOID SCREEN, URINE NEGATIVE (NEGATIVE); COCAINE SCREEN URINE NEGATIVE (NEGATIVE); METHADONE STAT NEGATIVE (NEGATIVE); METHAMPHETAMINE SCREEN URINE S NEGATIVE (NEGATIVE); OPIATE SCREEN URINE NEGATIVE (NEGATIVE); OXYCODONE STAT NEGATIVE (NEGATIVE); PROPOXYPHENE STAT NEGATIVE (NEGATIVE); TRICYCLIC ANTIDEPRESSANTS SCRE NEGATIVE (NEGATIVE)
[2021-06-23] MEDS ORDERED: NS 100 ML (IVPB) BAG IV ONE (14:15)
[2021-06-23] MEDS ORDERED: HOLD METFORMIN - RECEIVED CONTRAST 20 ML VIAL IV SCH (14:15)
[2021-06-23] MEDS ORDERED: IOHEXOL 350 MG/ML 100 ML (OMNIPAQUE 350) VIAL IV ONE (14:15)
--- NOTE | 2021-06-23 14:30 | Diagnostic Imaging Report ---
Portable erect AP chest at 150h. INDICATION: Cough COVID positive There are no prior studies available for comparison. The heart size is within normal limits. There are mild/moderate alveolar/interstitial infiltrate involving both lung bases. This appearance does suggest pneumonia/atelectasis as most likely due to the patient's diagnosis of COVID 19. The upper lungs are generally clear. There is no pleural effusion identified. The mediastinum is not widened. The osseous structures are intact. IMPRESSION: 1. There is mild/moderate bibasilar pneumonia/atelectasis. Most likely this is due to the patient's diagnosis of COVID 19. Report was faxed to [facility] by virgie at 2:29PM. Dictated by: Dictated on workstation # [id number]
--- NOTE | 2021-06-23 15:05 | Diagnostic Imaging Report ---
PROCEDURE: CT angiography of the chest with contrast. TECHNIQUE: Multiple contiguous axial images were obtained through the chest after uneventful bolus administration of intravenous contrast. 3D reconstructed CTA MIP acquisitions were also performed. Auto Exposure Controls were utilized during the CT exam to meet ALARA standards for radiation dose reduction. INDICATION: Cough, respiratory distress, history of Covid. COMPARISON: There are no prior CT chest examinations available for comparison. FINDINGS: The plain film examination of the chest performed prior to the study at 1:48 PM did note mild/moderate bibasilar pneumonia/atelectasis. On this exam there are alveolar/interstitial infiltrates involving both lower lobes. Other smaller patchy areas of increased density are also seen in both upper lobes. These findings are most likely due to the patient's diagnosis of Covid 19. There is no pleural effusion identified. The heart size is within normal limits. There is no defect within the pulmonary arteries to indicate a pulmonary embolus. The aorta is not abnormally dilated and there is no sign of a dissection. There is no mediastinal or hilar adenopathy. The thyroid gland is partially obstructed by streak artifact. The sections through the upper abdomen show that the liver is of lower density than usually seen. This does suggest fatty metamorphosis. There is no acute abnormality of the upper abdomen. The bone windows are unremarkable for an acute fracture or for a destructive lesion. There is some deformity of the distal sternum on the parasagittal images. This could be a sequela of prior trauma. IMPRESSION: 1. There is mild/moderate bilateral pneumonia/atelectasis. Most likely this is due to the patient's diagnosis of Covid 19. 2. There is no acute cardiopulmonary abnormality noted otherwise. In particular, there is no sign of a pulmonary embolus. 3. The low density appearance of the liver does suggest fatty metamorphosis. Dictated by: Dictated on workstation # [id number]
[2021-06-23] MEDS ORDERED: PROM25TA14 PO (15:24)
[2021-06-23 15:30] VITALS: BP 111/68
== END 2021-06-23 15:30 | disposition home or self-care (01) ==
LOC: EDUNIT# 13:06 → ER 13:08
DX: U07.1 COVID-19 (principal)
CPT/HCPCS: 36415; 71045; 71275; 80053; 80306; 81000; 84145; 85025; 85379; 86141